=== PATIENT | male | born 1990 | race Caucasian/White ===

== ENCOUNTER 2018-08-13 22:47 | Emergency (ER) | payer BC ==
[~2018-08-13] VITALS: Ht 188 cm; Wt 100.0 kg
[2018-08-13 23:21] VITALS: BP 157/88
[2018-08-13] MEDS ORDERED: LIDOcaine 1% w/epiNEPHrine 1:200,000 30ml vial IM ONE (23:25)
[2018-08-13] MEDS ORDERED: TETanus/Pertussis (Acell)/Diphther VAC/PF (Tdap-Adult) 0.5ml syringe IM ONE (23:25)
--- NOTE | 2018-08-13 23:40 | NUR ---
PT TO CT
--- NOTE | 2018-08-13 23:42 | NUR ---
PT BACK FROM CT
== END 2018-08-14 00:50 ==
LOC: ER 22:48
DX: S06.0X0A Concussion without loss of consciousness, initial encounter (principal); S02.32XA Fracture of orbital floor, left side, initial encounter for closed fracture; S01.112A Laceration without foreign body of left eyelid and periocular area, initial encounter; F10.929 Alcohol use, unspecified with intoxication, unspecified; Y90.9 Presence of alcohol in blood, level not specified; Y04.0XXA Assault by unarmed brawl or fight, initial encounter; Y93.89 Activity, other specified; Y92.89 Other specified places as the place of occurrence of the external cause; Y99.8 Other external cause status
CPT/HCPCS: 12011; 70450; 70486; 90471; 99284